=== PATIENT | male | born 1985 | race African-American/Black ===

== ENCOUNTER 2016-11-23 06:12 | Day surgery (SDC) | payer BC ==
[~2016-11-23] VITALS: Ht 170.2 cm; Wt 80.7 kg
[2016-11-23] MEDS ORDERED: LIDOCAINE 1% PF 30 ML VIAL. ONE ×2 (06:27→07:18)
[2016-11-23] MEDS ORDERED: BUPIVACAINE MPF 0.5% 30 ML VIAL. ONE (06:27)
[2016-11-23] MEDS ORDERED: IV RINGERS,LACTATED 1000ML 1,000 ML IV SCH (07:00)
[2016-11-23] MEDS ORDERED: ONDANSETRON PF 4 MG/2 ML VIAL. IV PRN (07:00)
[2016-11-23] MEDS ORDERED: fentaNYL PF VIAL 100 MCG/2 ML VIAL IV PRN ×2 (07:00)
[2016-11-23] MEDS ORDERED: HYDROmorphone 2 MG/ML VIAL IV PRN (07:00)
[2016-11-23] MEDS ORDERED: MORPHINE SULFATE 2 MG/ML DISP.SYRIN. IV PRN (07:00)
[2016-11-23] MEDS ORDERED: LIDOCAINE 1% 1 ML SYRINGE. ID PRN (07:00)
[2016-11-23] MEDS ORDERED: PROCHLORPERAZINE 10 MG/2 ML VIAL. IV PRN (07:00)
[2016-11-23] MEDS ORDERED: PROPOFOL 0 ML IV ONE (07:14)
[2016-11-23] MEDS ORDERED: MIDAZOLAM HCL/PF 2 MG/2 ML VIAL. ONE (07:14)
[2016-11-23] MEDS ORDERED: fentaNYL PF VIAL 100 MCG/2 ML VIAL ONE (07:14)
--- NOTE | 2016-11-23 07:20 | DISCH ---
DISCHARGE INSTRUCTIONS Condition on Discharge Condition on Discharge: Stable Activity After Discharge Activity Instructions for Disc: Activity as tolerated Other activity instructions: wiggling fingers helpful Bathing Instructions: Shower-keep dressing dry Lifting Instructions after Dis: No heavy lifting, No pulling or pushing, Do not lift >10 pounds Weight Bearing Status after Di: As tolerated Diet after Discharge Diet after Discharge: Regular Wound Incision Care Wound/Incision Care: Ice to area for comfort, Keep wound/cast CDI, Keep wound elevated, Do not change dressing Other wound/incision instructi: change if saturated Contacting the DRGigi after DC Call your doctor for: Concerns you may have Follow-Up Follow up with: Mando in 2wks Treatment/Equipment after DC Adaptive Equipment Issued: None SIMON FLORES II, MD Nov 23, 2016 07:20
--- NOTE | 2016-11-23 07:25 | PDOC4 ---
Operative Note Operative Note Date of surgery 11/23/2016 Surgeon: Maxwell Flores Anesthesia: Mary block with sedation Preoperative diagnosis: Left dorsal wrist cyst Postoperative diagnosis: Same Procedure performed: Open excision of left dorsal wrist cyst Tourniquet time: per op record Blood loss: 10mL Findings: cyst Specimens: Left dorsal wrist cyst Reason for procedure: Lino is a very pleasant 31-year-old who have been following for some time regarding his left wrist cyst that is interfering with his ability to exercise and occasionally throughout the day with his activities of daily living. Because of local symptoms. We had a discussion of the risks, benefits, and tourniquet is to proceeding with the above surgery and he elected to proceed. Description of procedure: Patient was greeted in the preoperative area by myself for the correct extremity was marked and verified. He was taken back to the operative suite and his antibiotics were started en route. Once in the operating room, he had successful placement of a Mary block by the anesthesiology team. We then proceeded to attach the arm board to our operating room table and prepped and draped his left upper extremity in her usual sterile fashion and conducted our standard preoperative timeout. After this, I palpated for religious assistant Ariel a line with skin marker directly over top of it. I then incised skin with a scalpel and used bipolar cautery to cauterize bleeders. I then used tenotomies, while an religious assistant held regnal retractors in place, to dissect around the cyst and delivered from the operative field. Identified the stalk of the cyst where felt it was originating from his dorsal wrist capsule and cauterized this area. The cyst itself was sent off for specimen. After this , the wound bed was irrigated with sterile fluid and I closed subcutaneous tissue with inverted interrupted 2-0 Vicryl followed by 3-0 nylon in a horizontal mattress fashion to close skin. The arm and hand were cleansed and dried, Steri-Strips, Xeroform, sterile gauze and a bulky soft wrap were applied to his left hand and wrist. He tolerated surgery well. Prior to accomplishing wound closure all counts were reported as correct 2 MAXWELL FLORES II, MD Nov 23, 2016 07:25
[2016-11-23] MEDS ORDERED: HYDR-971 PO (08:38)
[2016-11-23] MEDS ORDERED: DOCU-109 PO (08:38)
[2016-11-23] MEDS ORDERED: ONDA4TAB10 SL (08:39)
[2016-11-23] MEDS ORDERED: HYDROcodone/APAP 5/325MG 1 TAB TABLET ONE (08:46)
[2016-11-23 09:00] VITALS: BP 131/70
[2016-11-23] MEDS ORDERED: HYDROcodone/APAP 5/325MG 1 TAB TABLET PO ONE (09:00)
--- NOTE | 2016-11-24 16:44 | PATHOLOGY ---
PATHOLOGY REPORT * * * * * * * * FINAL DIAGNOSIS: Dense fibroconnective and fibroadipose tissue, left dorsal wrist: - Ganglion cyst. (JPM:mgr; 11/24/2016) REPORT ELECTRONICALLY SIGNED BY: Edson Buck M.D. DATE/TIME: 11/24/2016 16:44 * * * * * * * * GROSS PATHOLOGY: Received in formalin labeled "Lino Garcias, left dorsal wrist cyst," is a partially cystic segment of gan soft tissue measuring 2.7 x 1.3 x 1.0 cm. Sectioning reveals a collapsed cystic structure with clear, mucoid fluid. The tissue is submitted entirely in cassette A1. (JPM; 11/23/16) INITIAL CPT CODE(S): A; 77298 Professional services performed [place] [address] Technical services performed by [facility] at [address] [place] [address]. SPECIMEN(S) RECEIVED: A.Left dorsal wrist cyst CLINICAL HISTORY: Cyst, left wrist-dorsal PATIENT: LINO GARCIAS /AGE: 407/31/1985 (Age: 31) PATIENT #: [id number] ALT CASE #: SPECIMEN COLLECTION DATE: 11/23/2016 SPECIMEN RECEIVED DATE: 11/23/2016 [facility] - [address] [place] [address] - PHONE: [phone] * * * END OF REPORT * * *
== END 2016-11-23 09:25 | disposition home or self-care (01) ==
LOC: SURG 06:12
PROVIDERS: ATTEND Orthopaedic Surgery Sports Medicine
DX: M67.432 Ganglion, left wrist (principal); K21.9 Gastro-esophageal reflux disease without esophagitis; Z87.39 Personal history of other diseases of the musculoskeletal system and connective tissue; Z72.89 Other problems related to lifestyle
CPT/HCPCS: 25111; 88304; J0690; J2250; J3010; J2704; J3490

== ENCOUNTER → 2020-04-10 | Outpatient (CLI) | payer BC ==
[~2020-04-10] MED LIST: DOCU-109 PO; HYDR-3164 PO; MULT-445 PO; ONDA4TAB10 SL; OXYC-325 PO
--- NOTE | 2020-04-10 09:32 | RAD ---
EXAM: Abdomen sonogram. HISTORY: Pain. TECHNIQUE: Sonographic imaging of the abdominal wall at the site of palpable concern was performed. COMPARISON: None. FINDINGS: There is a solid nonvascular encapsulated lesion isoechoic to subcutaneous fat within the v entral abdominal wall at the site of bowel concern measuring 3.1 cm x 2.4 cm x 1.7 cm. This communica elizabeth with a defect within the underlying ventral abdominal wall fascia measuring 5 mm and there is mot ion through the defect with a Valsalva maneuver, favoring a fat-containing hernia. No additional lesi on is seen. IMPRESSION: Suspected fat-containing hernia sac measuring 3.1 cm in maximum dimension and extending t hrough a defect within the fascia of the ventral abdominal wall measuring 5 mm, corresponding with th e site of palpable concern. Electronically signed by: Haydee Urbina MD (04/10/2020 9:30 AM) [id number]
== END ==
LOC: US 08:47
PROVIDERS: ATTEND Family Medicine
DX: R19.09 Other intra-abdominal and pelvic swelling, mass and lump (principal)
CPT/HCPCS: 76705

== ENCOUNTER → 2020-05-18 | Outpatient (CLI) | payer BC | LOC: MERGE 10:30 → LAB 10:30 | PROVIDERS: ATTEND Surgery | DX: Z01.812 Encounter for preprocedural laboratory examination (principal); Z20.822 Contact with and (suspected) exposure to COVID-19; K43.9 Ventral hernia without obstruction or gangrene | CPT/HCPCS: U0003 ==

== ENCOUNTER 2020-05-21 08:06 | Day surgery (SDC) | payer BC ==
[~2020-05-21] VITALS: Ht 170.2 cm; Wt 95.5 kg
[~2020-05-21 08:06] MED LIST changes: +ACETAMINOPHEN 500 MG TABLET PO PRN; +BUPIVACAINE-EPI 0.25% 30 ML VIAL KIT. ONE; +HYDROmorphone 2 MG/ML VIAL IVP PRN; +MINERAL OIL for SURGERY 10 ML VIAL. MC ONE; +MORPHINE SULFATE 2 MG/ML VIAL. IVP PRN; -OXYC-325 PO; +PROCHLORPERAZINE 10 MG/2 ML VIAL. IVP PRN; +fentaNYL PF VIAL 100 MCG/2 ML VIAL IVP PRN
[2020-05-21] MEDS ORDERED: PROPOFOL 10 MG/ML (20ML) VIAL. IV ONE (08:17)
[2020-05-21] MEDS ORDERED: ROCURONIUM 50 MG/5 ML VIAL. ONE (08:17)
[2020-05-21] MEDS ORDERED: MIDAZOLAM HCL/PF 2 MG/2 ML VIAL. ONE (08:17)
[2020-05-21] MEDS ORDERED: SUCCINYLCHOLINE 200 MG/10 ML VIAL. ONE (08:17)
[2020-05-21] MEDS ORDERED: LIDOCAINE 2% PF 5 ML VIAL. ONE (08:17)
[2020-05-21] MEDS ORDERED: FAMOTIDINE 20 MG/2 ML VIAL ONE (08:17)
[2020-05-21] MEDS ORDERED: DEXAMETHASONE SOD PHOS 4 MG/ML VIAL ONE ×2 (08:17→09:42)
[2020-05-21] MEDS ORDERED: ONDANSETRON PF 4 MG/2 ML VIAL. ONE (08:17)
[2020-05-21] MEDS ORDERED: fentaNYL PF VIAL 100 MCG/2 ML VIAL ONE ×3 (08:17→11:30)
[2020-05-21] MEDS: IV RINGERS,LACTATED 1000ML 1,000 ML IV SCH ×2 (08:31→12:37)
[2020-05-21] MEDS ORDERED: NEOSTIGMINE METHYLSULFATE 5 MG/5 ML SYRINGE. ONE (10:26)
[2020-05-21] MEDS ORDERED: GLYCOPYRROLATE 1 MG/5 ML VIAL. ONE (10:26)
[2020-05-21] MEDS ORDERED: KETOROLAC 30 MG/ML VIAL. ONE (10:27)
[2020-05-21] MEDS ORDERED: SEVOFLURANE 61 TO 120 MINUTES. IH ONE (10:27)
--- NOTE | 2020-05-21 10:30 | PDOC4 ---
Operative Note Operative Note Date: May 212020 at 1027 Preoperative diagnosis: Epigastric hernia Postoperative diagnosis: Same Procedure: Robotic assisted laparoscopic epigastric hernia repair with mesh Surgeon: Jarrett Dictation: Patient is a 34-year-old gentleman is complained of a painful bulge in the epigastric area consistent with a hernia. Procedure of robotic assisted laparoscopic ventral hernia repair with mesh was explained to the patient detail risk benefits were also discussed including bleeding infection injury to intra- abdominal contents possible necessitating further or open operations alternatives to this procedure also discussed with the patient who seemed to understand and gave both verbal and written consent to have the procedure performed. Patient was taken to the operating room placed in supine position general anesthesia was initiated once patient was sleeping intubated his abdomen was prepped and draped usual sterile fashion using ChloraPrep. An area in the left upper quadrant was injected with quarter percent Marcaine with epinephrine incision was made 11 blade scalpel and a 5 mm Visiport was placed under direct visualization in the abdomen creating pneumoperitoneum. Once was complete a 8 mm ventral port was placed in the left midabdomen and an 8 mm da Elena port was placed in the left lower abdomen and the 5 mm Visiport was changed out to a 8 mm da Elena port. The da Elena robot was brought in and docked all port sites surgeon went to the robotic console using a grasper and Endo Christine scissors the preperitoneal fat was incised and taken down exposing the epigastric hernia the hernia contents were reduced. The hernia defect was then closed with a running 2 OV lock nonabsorbable suture. Ventral light ST mesh was then placed over the hernia defect this was sewn in place with a running 2 OV lock absorbable suture and the preperitoneal fat was closed over the mesh with a running 2 oh VueLock nonabsorbable suture. Sutures were removed. The da Elena robot was undocked from all port sites pneumoperitoneum was reduced all ports were removed. The port sites were all closed with 4 subcuticular Monocryl Mastisol Steri-Strips and island dressings were applied. Patient was awakened and extubated in the operating room taken to recovery in stable condition all sponge instrument needle counts listed as correct estimated blood loss 10 mL LOGAN ABBASI MD May 21, 2020 10:30
--- NOTE | 2020-05-21 10:32 | DISCH ---
DISCHARGE INSTRUCTIONS Condition on Discharge Condition on Discharge: Stable Activity After Discharge Activity Instructions for Disc: Avoid exertion Other activity instructions: No lifting more than 20 pounds for 2 weeks Diet after Discharge Diet after Discharge: Regular Wound Incision Care Other wound/incision instructi: Naty shower in 24-hour Contacting the DRGigi after DC Call your doctor for: If your condition worsens Follow-Up Follow up with: Dr. Abbasi in 2 weeks Treatment/Equipment after DC Adaptive Equipment Issued: None LOGAN ABBASI MD May 21, 2020 10:32
[2020-05-21] MEDS ORDERED: oxyCODONE/APAP 5/325 1 TAB TABLET PO ONE ×2 (11:45→12:20)
[2020-05-21] MEDS: fentaNYL PF VIAL 100 MCG/2 ML VIAL IVP PRN ×2 (11:46→11:54)
[2020-05-21] MEDS ORDERED: oxyCODONE/APAP 5/325 1 TAB TABLET ONE (11:47)
[2020-05-21] MEDS ORDERED: OXYC-325 PO (12:09)
[2020-05-21 12:45] VITALS: BP 134/77
== END 2020-05-21 13:45 | disposition home or self-care (01) ==
LOC: SURG 08:06 → MERGE 09:30 → SURG 13:45
PROVIDERS: ATTEND Surgery
DX: K43.9 Ventral hernia without obstruction or gangrene (principal); K21.9 Gastro-esophageal reflux disease without esophagitis; Z79.899 Other long term (current) drug therapy; Z98.890 Other specified postprocedural states; Z72.89 Other problems related to lifestyle
CPT/HCPCS: 49652; C1781; J0330; J0690; J1100; J1885; J2250; J2405; J2704; J2710; J3010; J3490; S2900